=== PATIENT | female | born 1965 | race Caucasian/White ===

== ENCOUNTER 2020-08-30 10:52 | Outpatient (REF) | payer OTHER, SELFPAY | END 2020-08-30 10:53 | disposition home or self-care (01) | LOC: HO.LAB 10:52 | PROVIDERS: Visit Provider Internal Medicine | DX: Z20.828 Contact with and (suspected) exposure to other viral communicable diseases (principal) | CPT/HCPCS: C9803; U0003 ==

== ENCOUNTER → 2023-11-23 14:33 | Outpatient (REF) | payer OTHER, SELFPAY | LOC: HO.SL 14:33 | PROVIDERS: PCP Internal Medicine; Visit Provider Psychiatry & Neurology Neurology | DX: G47.10 Hypersomnia, unspecified (principal) | CPT/HCPCS: 95806 ==

== ENCOUNTER → 2023-11-23 19:00 | Outpatient (BNV) | payer OTHER, SELFPAY | PROVIDERS: PCP Internal Medicine; Visit Provider Internal Medicine | DX: G47.10 Hypersomnia, unspecified (principal) | CPT/HCPCS: 95806 ==

== ENCOUNTER 2023-12-20 17:29 | Outpatient (REF) | payer OTHER, SELFPAY ==
--- NOTE | ~2023-12-20 | MR_ITS ---
EXAMINATION: MR BRAIN WITHOUT CONTRAST CLINICAL INFORMATION: Cerebral microvascular disease. Memory issues. COMPARISON: CT head dated 01/11/2010. TECHNIQUE: MRI of the brain was obtained using routine sequences without contrast. FINDINGS: There is no area of abnormal restricted diffusion to indicate an acute/subacute cerebral or cerebellar infarction. There is no intracranial hemorrhage. Several small subcortical T2/FLAIR hyperintense foci are noted within the frontal lobes. These lesions are nonspecific in appearance and are similar to MRI brain dated 09/13/2009. The may represent the sequelae of chronic microvascular ischemic change. There is no midline shift. There is no mass effect. There is no extra-axial fluid collection. The ventricles are normal in size. The flow voids at the base of the brain are maintained. Midline structures are normal in appearance. The cerebellar tonsils are normally positioned. The orbits are symmetric and within normal limits. There is minimal ethmoid air cell mucosal disease. The mastoid air cells are clear. There is a 0.9 x 0.7 cm T1 hypointense/T2 hyperintense lesion within the lateral aspect of the right parotid gland. There is a 0.7 x 0.5 cm lesion within the lateral aspect of the left parotid gland with similar signal characteristics. MR/MR head/brain wo con IMPRESSION: No acute intracranial abnormality. No evidence of acute/subacute cerebral or cerebellar infarction. Several small subcortical T2/FLAIR hyperintense foci are noted within the frontal lobes. These lesions are nonspecific in appearance and are similar to MRI brain dated 09/13/2009. The may represent the sequelae of chronic microvascular ischemic change. There is a 0.9 x 0.7 cm T1 hypointense/T2 hyperintense lesion within the lateral aspect of the right parotid gland. There is a 0.7 x 0.5 cm lesion within the lateral aspect of the left parotid gland with similar signal characteristics. These likely represent intraparotid lymph nodes.
== END 2023-12-20 17:30 | disposition home or self-care (01) ==
LOC: HO.MRI 17:29
PROVIDERS: PCP Internal Medicine; Visit Provider Psychiatry & Neurology Neurology
DX: G31.84 Mild cognitive impairment of uncertain or unknown etiology (principal)
CPT/HCPCS: 70551